=== PATIENT | female | born 1990 | race American Indian/Alaskan Native ===

== ENCOUNTER 2018-10-24 23:37 | Emergency (ER) | payer SELFPAY ==
[2018-10-24 23:48] VITALS: BP 131/62
[2018-10-25 00:04] LABS: Basophils % (Auto) 0.6 % (0.0-1.8); Eosinophils # (Auto) 0.3 K/mm3 (0.0-0.4); Eosinophils % (Auto) 3.2 % (0.0-4.3); Hematocrit 34.2 % (30.3-42.9); Hemoglobin 11.8 gm/dl (10.1-14.3); Lymphocytes # (Auto) 2.9 K/mm3 (1.2-5.4); Lymphocytes % (Auto) 34.2 % (13.4-35.0); Mean Corpuscular HGB Conc 35 % (30-34); Mean Corpuscular Volume 89 fl (79-97); Monocytes # (Auto) 0.7 K/mm3 (0.0-0.8); Monocytes % (Auto) 8.7 % (0.0-7.3); Platelet Count 266 K/mm3 (140-440); Red Blood Count 3.82 M/mm3 (3.65-5.03); Red Cell Distribution Width 13.5 % (13.2-15.2)
[2018-10-25 00:28] LABS: Alanine Aminotransferase 8 units/L (7-56); BUN/Creatinine Ratio 18; Blood Urea Nitrogen 11 mg/dL (7-17); Calcium 9.4 mg/dL (8.4-10.2); Hemolysis Index 3
== END 2018-10-25 01:50 | disposition left against medical advice (07) ==
LOC: ED 23:37
DX: M54.89 Other dorsalgia (principal)
CPT/HCPCS: 36415; 80053; 84703; 85025

== ENCOUNTER 2018-11-09 21:53 | Emergency (ER) | payer OTHER ==
--- NOTE | 2018-11-09 22:08 | Emergency Department Report ---
Blank Doc - Documentation Documentation: 28 y o female presents to Ed cc of mid to left sided chest pain x 20 mins ago labs cxr
--- NOTE | 2018-11-09 22:40 | XRay Report ---
PROCEDURE: XR CHEST ROUTINE 2V TECHNIQUE: PA and lateral chest radiographs were obtained. HISTORY: Chest Pain COMPARISONS: None. FINDINGS: Heart: Normal. Mediastinum/Vessels: Normal. Lungs/Pleural space: Normal. Bony thorax: No acute osseous abnormality. IMPRESSION: No acute cardiopulmonary process seen.. This document is electronically signed by Nargis Jenkins MD., November 09 2018 10:38:19 PM ET
[2018-11-09 23:51] LABS: BUN/Creatinine Ratio 18; Blood Urea Nitrogen 11 mg/dL (7-17); Calcium 9.3 mg/dL (8.4-10.2); Hemolysis Index 0
[2018-11-10 00:11] LABS: Basophils % (Auto) 0.5 % (0.0-1.8); Eosinophils # (Auto) 0.2 K/mm3 (0.0-0.4); Eosinophils % (Auto) 3.6 % (0.0-4.3); Hematocrit 35.1 % (30.3-42.9); Hemoglobin 11.9 gm/dl (10.1-14.3); Lymphocytes # (Auto) 2.2 K/mm3 (1.2-5.4); Lymphocytes % (Auto) 31.9 % (13.4-35.0); Mean Corpuscular HGB Conc 34 % (30-34); Mean Corpuscular Volume 91 fl (79-97); Monocytes # (Auto) 0.7 K/mm3 (0.0-0.8); Monocytes % (Auto) 10.3 % (0.0-7.3); Platelet Count 237 K/mm3 (140-440); Red Blood Count 3.86 M/mm3 (3.65-5.03)
[2018-11-10] MEDS ORDERED: LIDOCAINE VISCOUS 2% PO ONE (00:35)
[2018-11-10] MEDS ORDERED: ALUM-MAG HYDROX-SIMETH 200-200-20MG/5ML PO ONE (00:35)
--- NOTE | 2018-11-10 01:11 | Emergency Department Report ---
ED General Adult HPI - General Chief complaint: Chest Pain Stated complaint: CHEST PAIN Time Seen by Provider: 11/09/18 22:03 Source: patient Mode of arrival: Ambulatory Limitations: No Limitations - History of Present Illness Initial comments: Patient is a 28-year-old Latvian female with a history of GERD who presents for epigastric pain radiating to back while prior to arrival to ED patient states symptoms were initiated by by mouth intake has history of GERD not compliant with medications states frequent heartburn same patient same duration and same intensity there is no shortness of breath there is no wheezing patient does has a history of asthma asthma symptoms are related when necessary albuterol inhaler there is no shortness of breath no wheezing no wrist or distress at this time there is no diaphoresis no nausea vomiting pain level d escribed as 4/10 heartburn radiating posterior throat and back. 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 denies: cough, diaphoresis, fever/chills, headaches, loss of appetite, malaise, nausea/vomiting, rash, seizure, shortness of breath, syncope, weakness Treatments Prior to Arrival: none - Related Data Previous Rx's Medication Instructions Recorded Last Taken Type Omeprazole 20 mg PO DAILY #30 tablet. 11/10/18 Unknown Rx Sucralfate [Carafate] 1 gm PO ACHS 7 Days #28 tablet 11/10/18 Unknown Rx Allergies Allergy/AdvReac Type Severity Reaction Status Date / Time No Known Allergies Allergy Verified 10/24/18 23:48 ED Review of Systems ROS: Stated complaint: CHEST PAIN Other details as noted in HPI Constitutional: denies: chills, fever Eyes: denies: eye pain, eye discharge, vision change ENT: denies: ear pain, throat pain Respiratory: denies: cough, shortness of breath, wheezing Cardiovascular: chest pain (epigastric ). denies: palpitations, dyspnea on exertion, orthopnea, edema, syncope, paroxysmal nocturnal dyspnea Endocrine: no symptoms reported Gastrointestinal: vomiting. denies: abdominal pain, nausea, diarrhea, constipation, hematemesis, melena, hematochezia Genitourinary: denies: urgency, dysuria, discharge Musculoskeletal: back pain. denies: joint swelling, arthralgia, myalgia Skin: denies: rash, lesions Neurological: denies: headache, weakness, paresthesias Psychiatric: denies: anxiety, depression Hematological/Lymphatic: denies: easy bleeding, easy bruising ED Past Medical Hx - Past Medical History Previous Medical History?: Yes Hx Asthma: Yes - Surgical History Past Surgical History?: Yes Hx Cholecystectomy: Yes - Social History Smoking Status: Never Smoker Substance Use Type: None - Medications Home Medications: Home Medications Medication Instructions Recorded Confirmed Last Taken Type Omeprazole 20 mg PO DAILY #30 tablet. 11/10/18 Unknown Rx Sucralfate [Carafate] 1 gm PO ACHS 7 Days #28 tablet 11/10/18 Unknown Rx ED Physical Exam - General Limitations: No Limitations General appearance: alert, in no apparent distress - Head Head exam: Present: atraumatic, normocephalic - Eye Eye exam: Present: normal appearance, PERRL, EOMI Pupils: Present: normal accommodation - ENT ENT exam: Present: normal exam, mucous membranes moist. Absent: TM's normal bilaterally, normal external ear exam - Expanded ENT Exam Expanded Ear exam: Present: normal external inspection Mouth exam: Present: normal external inspection Throat exam: Positive: tonsillar erythema, other (uvula midline no exudate no lesions no swelling ). Negative: tonsillomegaly, tonsillar exudate, R peritonsillar mass, L peritonsillar mass - Neck Neck exam: Present: normal inspection, full ROM. Absent: tenderness, meningismus, lymphadenopathy, thyromegaly - Respiratory Respiratory exam: Present: normal lung sounds bilaterally. Absent: respiratory distress, wheezes, stridor, chest wall tenderness, accessory muscle use - Cardiovascular Cardiovascular Exam: Present: regular rate, normal rhythm, normal heart sounds. Absent: systolic murmur, diastolic murmur, rubs, gallop - GI/Abdominal GI/Abdominal exam: Present: soft, distended, tenderness (epigastric tenderness to deep palpation), normal bowel sounds. Absent: guarding, rebound, rigid, bruit, hernia - Rectal Rectal exam: Present: deferred - Extremities Exam Extremities exam: Present: normal inspection, full ROM, normal capillary refill. Absent: tenderness, pedal edema - Back Exam Back exam: Present: normal inspection, full ROM. Absent: tenderness, CVA tenderness (R), CVA tenderness (L), muscle spasm, paraspinal tenderness, vertebral tenderness, rash noted - Neurological Exam Neurological exam: Present: alert, oriented X3, CN II-XII intact, normal gait, reflexes normal. Absent: motor sensory deficit - Psychiatric Psychiatric exam: Present: normal affect, normal mood - Skin Skin exam: Present: warm, dry, intact, normal color. Absent: rash ED Course Vital Signs 11/09/18 22:05 Temperature 97.9 F Pulse Rate 83 Respiratory 18 Rate Blood Pressure 114/79 O2 Sat by Pulse 98 Oximetry ED Medical Decision Making - Lab Data Result diagrams: 11/09/18 23:01 11/09/18 23:04 Labs 11/09/18 11/09/18 23:01 23:04 WBC 6.9 RBC 3.86 Hgb 11.9 Hct 35.1 MCV 91 MCH 31 MCHC 34 RDW 14.0 Plt Count 237 Lymph % (Auto) 31.9 [place] % (Auto) 10.3 H Eos % (Auto) 3.6 Baso % (Auto) 0.5 Lymph # 2.2 [place] # 0.7 Eos # 0.2 Baso # 0.0 Seg Neutrophils % 53.7 Seg Neutrophils # 3.7 Sodium 143 Potassium 3.5 L Chloride 103.7 Carbon Dioxide 28 Anion Gap 15 BUN 11 Creatinine 0.6 L Estimated GFR > 60 BUN/Creatinine Ratio 18 Glucose 84 Calcium 9.3 Troponin T < 0.010 - EKG Data EKG shows normal: sinus rhythm, axis, intervals, QRS complexes, ST-T waves Rate: normal - EKG Data When compared to previous EKG there are: no significant change Interpretation: normal EKG (ekg interp by ed attending NSR No ST Elevated VT ) - Radiology Data Radiology results: report reviewed, image reviewed Ordering Physician: CLAUDETTE QUILES Date of Service: 11/09/18 Procedure(s): XR chest routine 2V Accession Number(s): [id number] cc: CLAUDETTE QUILES Fluoro Time In Minutes: PROCEDURE: XR CHEST ROUTINE 2V TECHNIQUE: PA and lateral chest radiographs were obtained. HISTORY: Chest Pain COMPARISONS: None. FINDINGS: Heart: Normal. Mediastinum/Vessels: Normal. Lungs/Pleural space: Normal. Bony thorax: No acute osseous abnormality. IMPRESSION: No acute cardiopulmonary process seen.. This document is electronically signed by Fortino Jenkins MD., November 09 2018 10:38:19 PM ET Transcribed By: [facility] Dictated By: FORTINO JENKINS MD Electronically Authenticated By: FORTINO JENKINS MD Signed Date/Time: 11/09/182239 DD/ 30 TD/TT: 11/09/182230 - Medical Decision Making ekg: NSR no st elevated mi, cxr: normal no infiltrates no opacities, labs normal trop: <0.01, Heart score is 0, pain relieved by GI cocktail given in ed plan: Carafe, omeprozole, follow up with GI in 2-3 days , follow up with pcp in 2-3 days, return to ed if symptoms worsen. return to ed if symptoms worsen, pt dc'd to home in stable condition at this time. Critical care attestation.: If time is entered above; I have spent that time in minutes in the direct care of this critically ill patient, excluding procedure time. ED Disposition Clinical Impression: GERD (gastroesophageal reflux disease) Qualifiers: Esophagitis presence: without esophagitis Qualified Code(s): K21.9 - Gastro- esophageal reflux disease without esophagitis Chest pain Qualifiers: Chest pain type: chest pain on breathing Qualified Code(s): R07.1 - Chest pain on breathing; R07.81 - Pleurodynia Disposition: DC-01 TO HOME OR SELFCARE Is pt being admited?: No Does the pt Need Aspirin: No Condition: Stable Instructions: Costochondritis (ED), Gastroesophageal Reflux Disease (ED), Diet for Ulcers and Gastritis (ED) Prescriptions: Sucralfate [Carafate] 1 gm PO ACHS 7 Days #28 tablet Omeprazole 20 mg PO DAILY #30 tablet. Referrals: [facility] [Provider Group] - 3-5 Days [facility] [Outside] - 3-5 Days Forms: Work/School Release Form(ED) Time of Disposition: 01:22
[2018-11-10 01:35] VITALS: BP 115/73
== END 2018-11-10 01:36 | disposition home or self-care (01) ==
LOC: ED 21:53
DX: K21.9 Gastro-esophageal reflux disease without esophagitis (principal); R07.89 Other chest pain; J45.909 Unspecified asthma, uncomplicated; Z90.49 Acquired absence of other specified parts of digestive tract
CPT/HCPCS: 36415; 71046; 80048; 84484; 85025; 93005; 93010; 99284

== ENCOUNTER 2018-11-21 06:54 | Emergency (ER) | payer OTHER ==
[2018-11-21 07:01] VITALS: BP 134/78
--- NOTE | 2018-11-21 07:40 | XRay Report ---
CHEST 1 VIEW INDICATION: Chest Pain. COMPARISON: 11/09/2018 FINDINGS: Support devices: None. Heart: Normal. Lungs/Pleura: No acute pulmonary or pleural findings. IMPRESSION: 1. No acute findings. Signer Name: Shawn Teixeira MD Signed: 11/21/2018 7:36 AM Workstation Name: [id number]
--- NOTE | 2018-11-21 08:17 | Emergency Department Report ---
ED General Adult HPI - General Chief complaint: Chest Pain Stated complaint: CHEST PAIN Time Seen by Provider: 11/21/18 07:38 Source: patient Mode of arrival: Ambulatory Limitations: No Limitations - History of Present Illness Initial comments: 28-year-old -[place]une[place] female presents to the emergency room for mid chest epigastric stabbing pain that radiates through to her back. Patient reports some shortness of breath when she lies down flat. Denies any nausea no vomiting. Patient was recently seen here on 11/10/2018 same symptoms. Patient was placed on Carafate and omeprazole Flexeril and referral to GI specialist. Patient has not follow-up with GI specialist. Patient reports that the symptoms have improved some but then come back. Discussed with patient how she is taking her medications she reports she takes her omeprazole after she eats. Patient reports that she has been waiting at least 2 hours after she eats to lay down. Onset/Timin -: month(s) Location: chest, back Radiation: back Severity scale (0 -10): 8 Quality: stabbing Consistency: intermittent Improves with: medication Worsens with: eating Associated Symptoms: denies other symptoms Treatments Prior to Arrival: none - Related Data Previous Rx's Medication Instructions Recorded Last Taken Type Cyclobenzaprine [Flexeril] 10 mg PO TID PRN #30 tablet 11/10/18 Unknown Rx Omeprazole 20 mg PO DAILY #30 tablet. 11/10/18 Unknown Rx Sucralfate [Carafate] 1 gm PO ACHS 7 Days #28 tablet 11/10/18 Unknown Rx Omeprazole 40 mg PO QDAY #30 capsule. 11/21/18 Unknown Rx Ranitidine HCl [Zantac] 150 mg PO BID #60 tablet 11/21/18 Unknown Rx Allergies Allergy/AdvReac Type Severity Reaction Status Date / Time No Known Allergies Allergy Verified 10/24/18 23:48 ED Review of Systems ROS: Stated complaint: CHEST PAIN Other details as noted in HPI Comment: All other systems reviewed and negative ED Past Medical Hx - Past Medical History Previous Medical History?: Yes Hx Asthma: Yes - Surgical History Past Surgical History?: Yes Hx Cholecystectomy: Yes - Social History Smoking Status: Never Smoker Substance Use Type: None - Medications Home Medications: Home Medications Medication Instructions Recorded Confirmed Last Taken Type Cyclobenzaprine [Flexeril] 10 mg PO TID PRN #30 tablet 11/10/18 Unknown Rx Omeprazole 20 mg PO DAILY #30 tablet. 11/10/18 Unknown Rx Sucralfate [Carafate] 1 gm PO ACHS 7 Days #28 tablet 11/10/18 Unknown Rx Omeprazole 40 mg PO QDAY #30 capsule. 11/21/18 Unknown Rx Ranitidine HCl [Zantac] 150 mg PO BID #60 tablet 11/21/18 Unknown Rx ED Physical Exam - General Limitations: No Limitations General appearance: alert, in no apparent distress - Head Head exam: Present: atraumatic, normocephalic - Eye Eye exam: Present: normal appearance - ENT ENT exam: Present: mucous membranes moist - Neck Neck exam: Present: normal inspection - Respiratory Respiratory exam: Present: normal lung sounds bilaterally. Absent: respiratory distress - Cardiovascular Cardiovascular Exam: Present: regular rate, normal rhythm. Absent: systolic murmur, diastolic murmur, rubs, gallop - GI/Abdominal GI/Abdominal exam: Present: soft, normal bowel sounds - Extremities Exam Extremities exam: Present: normal inspection - Back Exam Back exam: Present: normal inspection - Neurological Exam Neurological exam: Present: alert, oriented X3 - Psychiatric Psychiatric exam: Present: normal affect, normal mood - Skin Skin exam: Present: warm, dry, intact, normal color. Absent: rash ED Course Vital Signs 11/21/18 07:00 Temperature 97.9 F Pulse Rate 81 Respiratory 18 Rate Blood Pressure 134/78 [Right] O2 Sat by Pulse 96 Oximetry ED Medical Decision Making - Medical Decision Making 28-year-old female comes in warm GERD symptoms and exacerbation. Discussed the patient she can try taking Zantac 150 mg by mouth twice a day as well as omeprazole 40 mg daily and Carafate 20 mg daily. I discussed the patient to take her Zantac 6 before she eats take omeprazole 30 minutes prior to eating. Discussed the patient to discontinue Flexeril as this can cause decreased tone from her LES. I also discussed the patient and dad that she needs to follow up with a estimator and drafter.. Critical care attestation.: If time is entered above; I have spent that time in minutes in the direct care of this critically ill patient, excluding procedure time. ED Disposition Clinical Impression: GERD (gastroesophageal reflux disease) Qualifiers: Esophagitis presence: without esophagitis Qualified Code(s): K21.9 - Gastro- esophageal reflux disease without esophagitis Disposition: DC-01 TO HOME OR SELFCARE Is pt being admited?: No Does the pt Need Aspirin: No Condition: Stable Instructions: Gastroesophageal Reflux Disease (ED) Additional Instructions: Please take medications as prescribed. Avoid laying down after eating. Take omeprazole in the morning 30 minutes prior to her first meal. Take Zantac's 30 minutes before eating your first meal as well as 30 minutes before eating or last meal of the day. Take her Carafate as prescribed. It is very important for you to follow up with then estimator and drafter, I have listed their information below for your convenience. Prescriptions: Omeprazole 40 mg PO QDAY #30 capsule. Ranitidine HCl [Zantac] 150 mg PO BID #60 tablet Referrals: [facility] [Provider Group] - 3-5 Days GIRARD EVI PEREZ MD [Primary Care Provider] - 3-5 Days VASQUEZ SULLIVAN MD [Staff Physician] - 3-5 Days Forms: Work/School Release Form(ED)
== END 2018-11-21 08:53 | disposition home or self-care (01) ==
LOC: ED 06:54
DX: K21.9 Gastro-esophageal reflux disease without esophagitis (principal); J45.909 Unspecified asthma, uncomplicated; Z90.49 Acquired absence of other specified parts of digestive tract; Z79.899 Other long term (current) drug therapy
CPT/HCPCS: 71045; 93005; 93010; 99283

== ENCOUNTER 2019-02-17 09:50 | Emergency (ER) | payer OTHER ==
[2019-02-17 09:58] VITALS: BP 113/71
--- NOTE | 2019-02-17 10:40 | Emergency Department Report ---
ED Abdominal Pain HPI - General Chief Complaint: Abdominal Pain Stated Complaint: CHESTPAIN/ABD PAIN Time Seen by Provider: 02/17/19 10:20 Source: patient Mode of arrival: Ambulatory Limitations: No Limitations - History of Present Illness Initial Comments: 28-year-old -French female presents to the emergency room complaining of epigastric abdominal pain. Patient reports that she's been dealing with this for several months. Patient reports that since she started on omeprazole the pain is gotten worse. Patient reports that she did take Gas-X this morning and ibuprofen as help with the pain but comes back. Patient denies any smoking or alcohol use and has stopped eating meats. Patient reports that [place] and reports that seems to help the best. Patient was seen for this same complaint in October and November and was referred to gastroenterology and [facility] which she has not followed up. Patient denies any nausea vomiting but does admit to intermittent belching and bloating us. Patient reports her last menstrual period was 01/27/2019. Complaint: abdominal pain Onset/Timin -: days(s) Location: epigastric Radiation: none Migration to: no migration Severity scale (0 -10): 10 Quality: aching, fullness, burning Consistency: constant Improves With: medication (ibuprofen and Gas-X) Worsens With: nothing Associated Symptoms: denies other symptoms Treatments Prior to Arrival: antacids - Related Data LMP Date: 01/27/19 Previous Rx's Medication Instructions Recorded Last Taken Type Cyclobenzaprine [Flexeril] 10 mg PO TID PRN #30 tablet 11/10/18 Unknown Rx Omeprazole 20 mg PO DAILY #30 tablet. 11/10/18 Unknown Rx Omeprazole 40 mg PO QDAY #30 capsule. 11/21/18 Unknown Rx raNITIdine HCl [Zantac] 150 mg PO BID #60 tablet 11/21/18 Unknown Rx Sucralfate [Carafate] 1 gm PO ACHS 7 Days #28 tablet 02/17/19 Unknown Rx Allergies Allergy/AdvReac Type Severity Reaction Status Date / Time No Known Allergies Allergy Verified 10/24/18 23:48 ED Review of Systems ROS: Stated complaint: CHESTPAIN/ABD PAIN Other details as noted in HPI Comment: All other systems reviewed and negative ED Past Medical Hx - Past Medical History Previous Medical History?: Yes Hx Asthma: Yes - Surgical History Past Surgical History?: Yes Hx Cholecystectomy: Yes - Social History Smoking Status: Never Smoker Substance Use Type: None - Medications Home Medications: Home Medications Medication Instructions Recorded Confirmed Last Taken Type Cyclobenzaprine [Flexeril] 10 mg PO TID PRN #30 tablet 11/10/18 Unknown Rx Omeprazole 20 mg PO DAILY #30 tablet. 11/10/18 Unknown Rx Omeprazole 40 mg PO QDAY #30 capsule. 11/21/18 Unknown Rx raNITIdine HCl [Zantac] 150 mg PO BID #60 tablet 11/21/18 Unknown Rx Sucralfate [Carafate] 1 gm PO ACHS 7 Days #28 tablet 02/17/19 Unknown Rx ED Physical Exam - General Limitations: No Limitations General appearance: alert, in no apparent distress - Head Head exam: Present: atraumatic, normocephalic - Eye Eye exam: Present: normal appearance - ENT ENT exam: Present: mucous membranes moist - GI/Abdominal GI/Abdominal exam: Present: soft, tenderness (epigastric), normal bowel sounds. Absent: guarding, rebound, rigid - Extremities Exam Extremities exam: Present: normal inspection - Back Exam Back exam: Present: normal inspection, full ROM - Neurological Exam Neurological exam: Present: alert, oriented X3, normal gait - Psychiatric Psychiatric exam: Present: normal affect, normal mood - Skin Skin exam: Present: warm, dry, intact, normal color. Absent: rash ED Course Vital Signs 02/17/19 09:57 Temperature 98.3 F Pulse Rate 81 Respiratory 16 Rate Blood Pressure 113/71 O2 Sat by Pulse 98 Oximetry ED Medical Decision Making - Medical Decision Making 28-year-old -French female presents to the emergency room complaining of epigastric abdominal pain. Patient reports that she's been dealing with this for several months. Patient reports that since she started on omeprazole the pain is gotten worse. Patient reports that she did take Gas-X this morning and ibuprofen as help with the pain but comes back. Patient denies any smoking or alcohol use and has stopped eating meats. Patient reports that she was [place] and reports that seems to help the best. Patient was seen for this same complaint in October and November and was referred to gastroenterology and [facility] which she has not followed up. Patient denies any nausea vomiting but does admit to intermittent belching and bloating us. Patient reports her last menstrual period was 01/27/2019. Carafate and Bentyl has been ordered. Patient will be discharged on Carafate and referral to gastroenterology and [facility]. Critical care attestation.: If time is entered above; I have spent that time in minutes in the direct care of this critically ill patient, excluding procedure time. ED Disposition Clinical Impression: Epigastric abdominal pain Disposition: - TO HOME OR SELFCARE Is pt being admited?: No Does the pt Need Aspirin: No Condition: Stable Instructions: Abdominal Pain (ED) Prescriptions: Sucralfate [Carafate] 1 gm PO ACHS 7 Days #28 tablet Referrals: [facility] [Provider Group] - 3-5 Days [facility] [Provider Group] - 3-5 Days Forms: Work/School Release Form(ED)
[2019-02-17] MEDS ORDERED: SUCRALFATE 1 GM TAB PO ONE (11:00)
[2019-02-17] MEDS ORDERED: DICYCLOMINE 10 MG/5 ML ORAL LIQD PO ONE (11:00)
== END 2019-02-17 11:15 | disposition home or self-care (01) ==
LOC: ED 09:50
DX: R10.13 Epigastric pain (principal); J45.909 Unspecified asthma, uncomplicated; Z90.49 Acquired absence of other specified parts of digestive tract; Z79.899 Other long term (current) drug therapy
CPT/HCPCS: 99282